=== PATIENT | male | born 1955 | race Caucasian/White ===

== ENCOUNTER 2022-05-30 05:49 | Emergency (ER) | payer OTHER ==
[2022-05-30 06:08] VITALS: BP 165/76; PULSE 61; RESP 16; TEMP 98.5; BMI 34.9
== END 2022-05-30 06:30 | disposition home or self-care (01) ==
LOC: FER 05:49
PROC: 0JQ10ZZ Repair Face Subcutaneous Tissue and Fascia, Open Approach (ICD-10-PCS; principal; 2022-05-30)
DX: S01.81XA Laceration without foreign body of other part of head, initial encounter (principal)
CPT/HCPCS: 99283-25

== ENCOUNTER 2024-01-15 18:42 | Observation (INO) | payer OTHER ==
[2024-01-15 18:53] VITALS: BMI 34.0
[2024-01-15 19:41] LABS: HEMATOCRIT 47.5 % (35.4-49); HEMOGLOBIN 15.7 G/dL (11.7-16.9); MCH 31.3 pg (25.7-33.7); MCHC 33.1 g/dl (32.0-35.9); MEAN CELL VOLUME 94.7 fl (80-96); PLATELET COUNT 234.2 10^3/uL (134-434); RBC 5.02 10^6/uL (4.00-5.60); RDW 13.5 % (11.9-15.9); WHITE BLOOD COUNT 7.9 10^3/uL (4.0-10.8)
[2024-01-15 20:05] LABS: ALBUMIN 4.6 g/dl (3.4-5.0); BILIRUBIN,TOTAL 1.4 mg/dl (0.2-1); CALCIUM 9.7 mg/dl (8.5-10.1); CREATININE 0.9 mg/dl (0.6-1.3); POTASSIUM 3.8 mmol/L (3.5-5.1); TOT PROT 6.7 g/dl (6.4-8.2)
[2024-01-15] MEDS ORDERED: ACETAMINOPHEN 325 MG TABLET (FP) PO PRN (21:19)
[2024-01-15] MEDS ORDERED: DOCUSATE SODIUM 100 MG CAPSULE (FP) PO PRN (21:19)
[2024-01-15] MEDS: ASPIRIN 81 MG CHEWABLE TABLETS PO ONE (22:17)
[2024-01-15] MEDS ORDERED: ALBUTEROL SO4 HFA INHALER IH PRN (22:40)
[2024-01-16 08:30] LABS: INR 1.05 (0.83-1.09)
[2024-01-16 08:33] LABS: ACTIVATED PTT 34.1 SECONDS (25.2-36.5)
[2024-01-16] MEDS: amLODIPine BESYLATE 5 MG TABLET (FP) PO SCH (09:54)
[2024-01-16] MEDS: LOSARTAN 50MG/HCTZ 12.5MG 1 TAB PO SCH (11:17)
[2024-01-16] MEDS: ATORVASTATIN CA 40 MG TABLET (FP) PO SCH (11:17)
[2024-01-16] MEDS: ASPIRIN COATED 81 MG TABLET.EC PO SCH (11:17)
[2024-01-16 13:26] LABS: COCAINE, UR NEGATIVE (NEGATIVE); OPIATES, URI NEGATIVE (NEGATIVE); URINE AMPHETAMINES NEGATIVE (NEGATIVE); URINE BARBITURATES NEGATIVE (NEGATIVE)
[2024-01-16 13:27] LABS: METHADONE, UR NEGATIVE (NEGATIVE); PHENCYCLIDINE,URINE NEGATIVE (NEGATIVE); URINE BENZODIAZEPINES NEGATIVE (NEGATIVE)
[2024-01-16 15:18] LABS: CHOLESTEROL 157 mg/dL (50-200)
[2024-01-16 15:23] LABS: HDL CHOLESTEROL 55 mg/dL (40-60); LDL CHOLESTEROL (ONLY DFH) 90 mg/dL (5-100)
[2024-01-16 22:31] VITALS: RESP 18
[2024-01-17 10:02] VITALS: BP 138/71; PULSE 59; TEMP 98
== END 2024-01-17 15:35 | disposition home or self-care (01) ==
LOC: FER 18:42 → INTOOBSV 21:19 → FM/S 21:19
PROVIDERS: ADMIT Internal Medicine; ATTEND Internal Medicine
DX: H53.2 Diplopia (principal); I10 Essential (primary) hypertension; M19.90 Unspecified osteoarthritis, unspecified site; E66.9 Obesity, unspecified; Z91.013 Allergy to seafood
CPT/HCPCS: 36415; 70450-TC; 70544-TC; 70551-TC; 80053; 80061; 80307; 83036; 85027; 85610; 85651; 85730; 86140; 93005; 93306-TC; 93880-TC; 97116-GP; 97161-GP; 99285-25; G0378